=== PATIENT | male | born 1980 | race Caucasian/White ===

== ENCOUNTER 2017-10-31 10:27 | Emergency (ER) | payer BC ==
[~2017-10-31] VITALS: Ht 180.3 cm; Wt 134.9 kg
[~2017-10-31 10:27] MED LIST: MIRALAX17 GM PO
[2017-10-31 13:58] VITALS: BP 155/92
== END 2017-10-31 13:59 | disposition home or self-care (01) ==
LOC: EME 10:27
DX: S61.012A Laceration without foreign body of left thumb without damage to nail, initial encounter (principal); W26.0XXA Contact with knife, initial encounter; Y99.0 Civilian activity done for income or pay; Z23 Encounter for immunization; R73.03 Prediabetes; Z88.2 Allergy status to sulfonamides; F17.200 Nicotine dependence, unspecified, uncomplicated
CPT/HCPCS: 99281; 99283; S0020